=== PATIENT | male | born 1955 ===

== ENCOUNTER 2019-09-27 08:01 | Day surgery (SDC) | payer BC, MEDICARE ==
[~2019-09-27 08:01] MED LIST: Lactated Ringers 1,000 ML IV SCH; Lidocaine 1%/Sod Bicarbonate in NS 8.4% 1 ML Syringe IDERM PRN; Sodium Chloride 0.9% 10 ML Syringe FLUSH PRN
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
[2019-09-27] MEDS ORDERED: Propofol 200 MG/20 ML SDV ONE ×2 (08:26→09:03)
[2019-09-27] MEDS ORDERED: Lidocaine 1% 4 ML ONE (08:26)
--- NOTE | 2019-09-27 09:49 | PCM.PRNOTE ---
- Free Text/Narrative Note: Date: 09/27/2019 Procedure: screening colonoscopy Endoscopist: Parviz Singletary MD Findings: Ileocecal valve visualized. Prep was good. No polyps identified. Detailed Report: The patient was taken to the endoscopy suite and placed in left lateral decubitus position. Time out was performed and monitored anesthesia care was initiated. The anus appeared normal. Digital rectal exam was unremarkable. The lubricated colonoscope was then inserted and advanced all the way to the cecum. The appendiceal orifice was visualized. The prep was noted to be pretty good. On slow withdrawal of the scope, mucosal surfaces were carefully inspected. No polyps identified. No diverticular or hemorrhoidal disease. The patient tolerated the procedure well. Parviz Singletary MD General Surgery
--- NOTE | 2019-09-27 09:53 | PCM48HPAN ---
Post Anesthesia Note - EVALUATION WITHIN 48HRS OF ANESTHETIC Vital Signs in Normal Range: Yes Patient Participated in Evaluation: Yes Respiratory Function Stable: Yes Airway Patent: Yes Cardiovascular Function Stable: Yes Hydration Status Stable: Yes Pain Control Satisfactory: Yes Nausea and Vomiting Control Satisfactory: Yes Mental Status Recovered: Yes Vital Signs: Last Vital Signs Temp 36.7 C 09/27/19 08:05 Pulse 78 09/27/19 08:05 Resp 16 09/27/19 08:05 BP 162/99 H 09/27/19 08:05 Pulse Ox 97 09/27/19 08:05
== END 2019-09-27 10:35 | disposition home or self-care (01) ==
LOC: JD.SDS 08:01
PROVIDERS: ATTEND Surgery
DX: Z12.11 Encounter for screening for malignant neoplasm of colon (principal); I12.9 Hypertensive chronic kidney disease with stage 1 through stage 4 chronic kidney disease, or unspecified chronic kidney disease; N18.9 Chronic kidney disease, unspecified; E78.00 Pure hypercholesterolemia, unspecified; F32.9 Major depressive disorder, single episode, unspecified; Z79.899 Other long term (current) drug therapy
CPT/HCPCS: 45378; J2001; J2704; J7120; 00812

== ENCOUNTER 2023-12-01 09:45 | Emergency (ER) | payer MEDICARE, BC ==
[2023-12-01 10:42] LABS: BASOPHILS PERCENT AUTO 0.4 % (0.0-1.0); EOSINOPHILS ABSOLUTE AUTO 0.1 K/mm3 (0.0-0.4); HEMATOCRIT 42.7 % (42.0-52.0); HEMOGLOBIN 14.2 gm/dl (14.0-18.0); IMMATURE GRAN ABSOLUTE AUTO 0.04 K/mm3 (0.00-0.05); IMMATURE GRAN PERCENT AUTO 0.4 % (0.0-0.4); LYMPHOCYTES ABSOLUTE AUTO 0.9 K/mm3 (1.0-4.8); MEAN CORPUSCULAR HEMOGLOBIN 29.4 pg (28.0-32.0); MEAN CORPUSCULAR HGB CONC 33.3 g/dl (32.0-36.0); MEAN CORPUSCULAR VOLUME 88.4 fl (83.0-99.0); MEAN PLATELET VOLUME 9.9 fl (9.4-12.4); MONOCYTES ABSOLUTE AUTO 0.7 K/mm3 (0.0-0.8); MONOCYTES PERCENT AUTO 6.8 % (0.0-8.0); NEUTROPHILS ABSOLUTE AUTO 8.4 K/mm3 (1.8-7.7); NEUTROPHILS PERCENT AUTO 82.4 % (41.0-71.0); PLATELET COUNT,PLT 202 K/mm3 (150-400); RED BLOOD CELL COUNT 4.83 M/mm3 (4.52-5.90); WHITE BLOOD CELL COUNT,WBC 10.13 K/mm3 (3.9-11.3)
[2023-12-01] MEDS: Aspirin 81 MG Tab.Chew PO ONE (11:01)
[2023-12-01 11:02] LABS: ALBUMIN 3.9 g/dl (3.4-5.0); ANION GAP 14.9 (5-15); BILIRUBIN TOTAL 0.5 mg/dL (0.2-1.0); BUN/CREATININE RATIO 13.8 (14-18); CALCIUM 8.9 mg/dL (8.5-10.1); CREATININE 1.6 mg/dL (0.7-1.3); EST CRCL DRUG DOSING (CG) 46.41 mL/min; MAGNESIUM 2.1 mg/dL (1.8-2.4); PHOSPHORUS 2.5 mg/dL (2.6-4.7); POTASSIUM,K 3.9 mEq/L (3.5-5.1)
[2023-12-01 11:03] LABS: INR 0.97; PROTHROMBIN TIME 10.4 SECONDS (9.7-12.0)
[2023-12-01 11:10] LABS: D-DIMER QUANTITATIVE 0.53 mg/L (0.19-0.50)
[2023-12-01] MEDS ORDERED: Sodium Chloride 0.9% 100 ML IV SCH (11:45)
[2023-12-01] MEDS: Sodium Chloride 0.9% 10 ML Syringe FLUSH PRN (11:54)
[2023-12-01] MEDS: Iopamidol 755 Mg/ML 100 ML Bottle IVPUSH ONE (11:54)
[2023-12-01 12:49] LABS: APPEARANCE,URINE CLOUDY (Clear); BILIRUBIN,URINE NEGATIVE (Negative); COLOR,URINE YELLOW (Yellow); GLUCOSE,URINE NEGATIVE (Negative); KETONES,URINE NEGATIVE (Negative); LEUKOCYTE ESTERASE,URINE 3+ (Negative); NITRITE,URINE POSITIVE (Negative); OCCULT BLOOD,URINE 2+ (Negative); PH,URINE 7.5 (5.0-8.0); PROTEIN,URINE 1+ (Negative); UROBILINOGEN,URINE 0.2 (0.2-1.0)
[2023-12-01] MEDS: Sulfamethoxazole/Trimethoprim 800-160 MG Tab PO ONE (14:11)
[2023-12-01] MEDS: Phosphorus #1 250 MG Tab PO ONE (14:11)
[2023-12-01 14:45] LABS: BACTERIA,URINE MODERATE /hpf (FEW); EPITHELIAL CELLS,URINE 0-5 /hpf (0-5); MUCUS,URINE FEW /hpf (FEW); RBC,URINE 0-5 /hpf (0-5); TRIPLE PHOSPHATE CRYSTALS,UR FEW /hpf; WBC,URINE 0-5 /hpf (0-5)
== END 2023-12-01 14:16 | disposition home or self-care (01) ==
LOC: JD.ED 09:45
DX: R07.89 Other chest pain (principal); E83.39 Other disorders of phosphorus metabolism; N30.00 Acute cystitis without hematuria; I10 Essential (primary) hypertension; E78.00 Pure hypercholesterolemia, unspecified; Z86.16 Personal history of COVID-19; Z79.2 Long term (current) use of antibiotics; Z79.899 Other long term (current) drug therapy
CPT/HCPCS: 36415; 71045; 71275; 80053; 81001; 81003; 83690; 83735; 83880; 84100; 84484; 85025; 85379; 85610; 87086; 93005; 99285; A9270; J3490; Q9967; 93010; 99284